=== PATIENT | female | born 1965 | race Caucasian/White ===

== ENCOUNTER 2017-12-28 15:53 | Emergency (ER) | payer OTHER, SELFPAY ==
[2017-12-28] MEDS: NAPROXEN 250 MG TAB PO (19:45)
== END 2017-12-28 19:53 | disposition home or self-care (01) ==
LOC: M ED 15:53
DX: S16.1XXA Strain of muscle, fascia and tendon at neck level, initial encounter (principal); S29.012A Strain of muscle and tendon of back wall of thorax, initial encounter; S40.012A Contusion of left shoulder, initial encounter; R51 Headache; V43.52XA Car driver injured in collision with other type car in traffic accident, initial encounter; Y92.410 Unspecified street and highway as the place of occurrence of the external cause; F17.210 Nicotine dependence, cigarettes, uncomplicated
CPT/HCPCS: 72125

== ENCOUNTER → 2021-12-14 | Outpatient (CLI) | payer OTHER ==
[~2021-12-14] MED LIST: NAPR-885 PO; ROBA500T PO
== END ==
LOC: M RAD 10:44
PROVIDERS: ATTEND Physician Assistant Medical
DX: S59.901A Unspecified injury of right elbow, initial encounter (principal); W18.30XA Fall on same level, unspecified, initial encounter; Y92.009 Unspecified place in unspecified non-institutional (private) residence as the place of occurrence of the external cause